=== PATIENT | female | born 1950 | race Caucasian/White ===

== ENCOUNTER 2016-07-17 11:02 | Outpatient (CLI) | payer MEDICARE, OTHER | END 2016-07-17 11:03 | disposition home or self-care (01) | DX: M13.80 Other specified arthritis, unspecified site (principal); Z79.899 Other long term (current) drug therapy ==

== ENCOUNTER 2020-12-15 08:00 | Outpatient (CLI) | payer MEDICARE, OTHER | END 2020-12-15 23:59 | disposition home or self-care (01) | LOC: LAB.S 08:00 | PROVIDERS: ATTEND Physician Assistant Medical | DX: R05 Cough (principal); Z20.822 Contact with and (suspected) exposure to COVID-19 ==

== ENCOUNTER 2021-08-29 07:18 | Outpatient (CLI) | payer MEDICARE, OTHER ==
--- NOTE | 2021-08-29 14:42 | MRI Report ---
PROCEDURE: Shoulder RT W/O INDICATIONS: PAIN IN RIGHT SHOULDER TECHNIQUE: Noncontrast oblique coronal T2 fast spin echo with fat saturation, oblique sagittal T1 spin echo and T2 fast spin echo with fat saturation, axial T1 spin echo and T2 fast spin echo with fat saturation t hrough the shoulder. COMPARISON: None. FINDINGS: Image quality: Excellent. Rotator cuff: There is moderate T2 signal elevation throughout the supraspinatus and infraspinatus te ndons at the humeral insertion sites, extending the muscular tendinous junctions, indicating tendinop athy. There is superimposed high-grade bursal surface and intrasubstance tearing of the posterior sup raspinatus tendon at the humeral insertion site extending the muscular tendinous junction, measuring roughly 10 mm anteroposterior. Subscapularis tendon demonstrates low-grade bursal thickness intrasubs tance tearing at its superior aspect at the muscle tendinous junction. Teres minor is intact. Infrasp inatus is intact. No rotator cuff atrophy. Bones and bursae: No bone marrow contusions or fractures. Moderate acromioclavicular joint degenerat ion. The acromion demonstrates conventional anatomy, without an os acromiale. No pathologic subacro mial/subdeltoid bursal fluid is present. Capsule and soft tissues: In the absence of intra-articular contrast, the labrum and glenohumeral li gaments appear intact. The long head of the biceps tendon demonstrates normal location and morpholog y. Moderate fluid surrounds the biceps tendon. The rotator interval appears normal, without fibrosis . The coracohumeral ligament is normal in thickness. IMPRESSION: 1. Supraspinatus and intraspinous tendinopathy. Superimposed high-grade tearing of the supraspinatus. 2. Low-grade tearing of the subscapularis. 3. Acromial clavicular joint osteoarthritis. 4. Bicipital tendinitis. Reviewed by: Drew Schwartz MD on 08/29/2021 2:40 PM PDT Approved by: Drew Schwartz MD on 08/29/2021 2:40 PM PDT Station ID: [id number]
== END 2021-08-29 07:19 | disposition home or self-care (01) ==
LOC: DI 07:18
PROVIDERS: ATTEND Registered Nurse
DX: M75.101 Unspecified rotator cuff tear or rupture of right shoulder, not specified as traumatic (principal); S46.021A Laceration of muscle(s) and tendon(s) of the rotator cuff of right shoulder, initial encounter; M19.011 Primary osteoarthritis, right shoulder; M75.21 Bicipital tendinitis, right shoulder

== ENCOUNTER 2024-01-15 07:00 | Outpatient (CLI) | payer MEDICARE, OTHER ==
--- NOTE | 2024-01-15 14:02 | XRAY Report ---
PROCEDURE: Chest 2V INDICATIONS: BRONCHITIS TECHNIQUE: 2 views of the chest were acquired. COMPARISON: None. FINDINGS: Surgical changes and devices: None. Lungs and pleura: No pleural effusions or pneumothorax. Lungs are clear. Mediastinum: Mediastinal contours appear normal. Heart size is enlarged. Bones and chest wall: No suspicious bony lesions. Overlying soft tissues appear unremarkable. IMPRESSION: No acute cardiopulmonary process. Reviewed by: Annelise Marrufo MD on 01/15/2024 2:00 PM PDT Approved by: Annelise Marrufo MD on 01/15/2024 2:00 PM PDT Station ID: [id number]
== END 2024-01-15 23:59 | disposition home or self-care (01) ==
LOC: DI.S 07:00
PROVIDERS: ATTEND Emergency Medicine
DX: J20.9 Acute bronchitis, unspecified (principal)